=== PATIENT | female | born 1990 | race Two or more races ===

== ENCOUNTER 2020-04-15 16:20 | Emergency (ER) | payer OTHER ==
[~2020-04-15] VITALS: Ht 160 cm; Wt 98.9 kg
[2020-04-15] MEDS ORDERED: LABETALOL HCL100 MG PO (16:27)
== END 2020-04-15 18:49 | disposition home or self-care (01) ==
LOC: ER 16:20
DX: O26.892 Other specified pregnancy related conditions, second trimester (principal); M94.0 Chondrocostal junction syndrome [Tietze]; Z3A.24 24 weeks gestation of pregnancy

== ENCOUNTER 2020-07-15 14:00 | Inpatient (IN) | payer OTHER ==
[~2020-07-15] VITALS: Ht 160 cm; Wt 106.6 kg
[~2020-07-15 14:00] MED LIST: LABETALOL HCL100 MG PO
[2020-07-27] MEDS ORDERED: PRENATAL CAPLE1 EAC1 PO (07:46)
[2020-07-27] MEDS ORDERED: LABETALOL HCL100 MG PO (07:47)
[2020-07-27] MEDS ORDERED: MAGNESIUM250 M1 PO (07:47)
== END 2020-07-29 12:25 | disposition home or self-care (01) | DRG 787 ==
LOC: OB/GYN 07-27 06:08 → LDR 07-27 06:08 → OB/GYN 07-27 19:34 → SURH 08-03 14:00
PROVIDERS: ADMIT Obstetrics & Gynecology; ATTEND Obstetrics & Gynecology
PROC: 3E033VJ Introduction of Other Hormone into Peripheral Vein, Percutaneous Approach (ICD-10-PCS; 2020-07-27)
PROC: 4A1HXFZ Monitoring of Products of Conception, Cardiac Rhythm, External Approach (ICD-10-PCS; 2020-07-27)
PROC: 10D00Z1 Extraction of Products of Conception, Low, Open Approach (ICD-10-PCS; principal; 2020-07-27 15:00)
DX: O62.1 Secondary uterine inertia (principal); O10.02 Pre-existing essential hypertension complicating childbirth; Z3A.39 39 weeks gestation of pregnancy; Z37.0 Single live birth; Z20.822 Contact with and (suspected) exposure to COVID-19